=== PATIENT | male | born 1975 | race Caucasian/White ===

== ENCOUNTER 2024-06-08 15:09 | Emergency (ER) | payer OTHER ==
[2024-06-08] MEDS ORDERED: Lidocaine 1% (PF) 30 ML VIAL ONE (15:46)
[2024-06-08] MEDS ORDERED: Boostrix 0.5 ML (Tdap) VIAL (>/=7 yrs of age) ONE (16:11)
== END 2024-06-08 16:45 | disposition home or self-care (01) ==
LOC: NAV ERS 15:09
DX: S81.811A Laceration without foreign body, right lower leg, initial encounter (principal); Z23 Encounter for immunization; V86.59XA Driver of other special all-terrain or other off-road motor vehicle injured in nontraffic accident, initial encounter; Y93.89 Activity, other specified
CPT/HCPCS: 12001; 90471; 90715